=== PATIENT | female | born 1950 | race Caucasian/White ===

== ENCOUNTER 2019-07-08 07:01 | Day surgery (SDC) | payer OTHER, MEDICAID ==
[2019-07-08] MEDS ORDERED: PROPOFOL 40 ML (08:28)
[2019-07-08] MEDS ORDERED: LIDOCAINE 2% (SDV) 5 ML INJ (08:29)
[2019-07-08] MEDS ORDERED: LABETALOL HCL 20MG INJ IV (09:00)
[2019-07-08] MEDS ORDERED: ALBUTEROL 0.083% (NEB) 2.5 MG/3 ML AMP HHN (09:00)
[2019-07-08] MEDS ORDERED: FENTAnyl 50 MCG/ML VIAL IV (09:00)
[2019-07-08] MEDS ORDERED: DIPHENHYDRAMINE 50 MG INJ IV (09:00)
[2019-07-08] MEDS ORDERED: hydrALAzine 20 MG INJ IV (09:00)
[2019-07-08] MEDS ORDERED: ONDANSETRON 4 MG INJ IV (09:00)
[2019-07-08] MEDS ORDERED: EPHEDrine 25 MG/5 ML SYG IV (09:00)
== END 2019-07-08 09:58 | disposition home or self-care (01) ==
LOC: GIL 07:01
DX: Z12.11 Encounter for screening for malignant neoplasm of colon (principal); D12.5 Benign neoplasm of sigmoid colon; D12.8 Benign neoplasm of rectum; K57.30 Diverticulosis of large intestine without perforation or abscess without bleeding; I10 Essential (primary) hypertension; E11.9 Type 2 diabetes mellitus without complications
CPT/HCPCS: 45380; 82962; 88305